=== PATIENT | female | born 1945 | race Asian ===

== ENCOUNTER 2017-04-07 21:35 | Emergency (ER) | payer OTHER ==
[2017-04-07 21:54] VITALS: PULSE 84; RESP 16; TEMP 98.4
[2017-04-07] MEDS ORDERED: TDAP ADULT 0.5 ML INJ (BOOSTRIX) IM ONE (21:54)
--- NOTE | 2017-04-07 22:22 | EDPHY ---
H & P Stated Complaint: laceration left side of head-hit on circulating fan Time Seen by Provider: 04/07/17 21:52 HPI/ROS: CHIEF COMPLAINT: Scalp laceration HISTORY OF PRESENT ILLNESS: This is a healthy 72-year-old female who presents with scalp laceration. She was struck on the left side of her head by a slow- moving ceiling fan when she reached for the cord (she was standing on the bed at the time). She did not fall or lose consciousness. She denies other injuries. She does not take anticoagulation. She does not have headache. Bleeding has been controlled. REVIEW OF SYSTEMS: A ten point review of systems was performed and is negative with the exception of the items mentioned in the HPI. Past medical history: Denies Social history: She lives in [place]. She is here visiting her son. No tobacco or alcohol use. General Appearance: Alert. Vital signs reviewed. Initial blood pressure 180/ 84. Head: There is a 1-1/4 cm laceration on the left frontal scalp, behind the hairline. Linear laceration, galea intact. No palpable skull deformity. Eyes: Pupils equal and round, no conjunctival injection, no discharge. Anicteric. ENT, Mouth: Mucous membranes are moist, no oropharyngeal erythema or edema. Neck: Nontender to palpation over the cervical spine in the midline. Respiratory: Lungs are clear to auscultation; no wheezes, rales, or rhonchi. Cardiovascular: Regular rate and rhythm; no murmur, rub, or gallop. Skin: Warm and dry, no rashes on exposed skin, normal color. Back: Nontender to palpation over the thoracolumbar spine. No CVAT.g. Neurological: Alert and oriented. Moving all four extremities easily and equally. KENIA. EOMI. Facial expression symmetric. Psychiatric: Normal affect. - Personal History Current Tetanus Diphtheria and Acellular Pertussis (TDAP): No - Medical/Surgical History Hx Asthma: No Hx Chronic Respiratory Disease: No Hx Diabetes: No Hx Cardiac Disease: No Hx Renal Disease: No Hx Cirrhosis: No Hx Alcoholism: No Hx HIV/AIDS: No Hx Splenectomy or Spleen Trauma: No Other PMH: asthma as a child - Social History Smoking Status: Never smoked Constitutional: Initial Vital Signs Temperature (C) 36.9 C 04/07/17 21:51 Heart Rate 84 04/07/17 21:51 Respiratory Rate 16 04/07/17 21:51 Blood Pressure 180/84 H 04/07/17 21:51 O2 Sat (%) 94 04/07/17 21:51 O2 Delivery Mode Room Air Allergies/Adverse Reactions: No Known Allergies Allergy (Unverified 04/07/17 21:51) Home Medications: Medication Instructions Recorded NK [No Known Home Meds] 04/07/17 Medical Decision Making Procedures: Procedure: Laceration repair. Verbal consent was obtained from the patient. The one and 1/4 cm laceration on the left frontal scalp was anesthetized in the usual fashion. The wound was irrigated explored to its base with a gloved finger. There were no deep structures involved. Galea was intact. The wound was repaired with 8 surgical eris. The wound repair was single layer, simple. The procedure was performed by myself. ED Course/Re-evaluation: I considered scalp laceration, skull fracture, concussion, and intracranial hemorrhage. Tetanus was updated. Departure - Departure Disposition: Home, Routine, Self-Care Clinical Impression: Scalp laceration Qualifiers: Encounter type: initial encounter Qualified Code(s): S01.01XA - Laceration without foreign body of scalp, initial encounter Condition: Good Instructions: Laceration (ED) Additional Instructions: Eris need to be removed in 5 to 7 days. They are 8 eris. If you ask your primary care doctor to take them out you should take a staple remover and these instructions with you. Keep them dry for 24 hours. After that you can gently wash your hair and pat dry the wound. Referrals: NONE *PRIMARY CARE P,. [Primary Care Provider] - As per Instructions
[2017-04-07 22:57] VITALS: BP 180/91; O2SAT 96
== END 2017-04-07 22:57 | disposition home or self-care (01) ==
LOC: CED 21:35
PROC: 0HQ0XZZ Repair Scalp Skin, External Approach (ICD-10-PCS; principal; 2017-04-07)
DX: S01.01XA Laceration without foreign body of scalp, initial encounter (principal); Z23 Encounter for immunization; W22.8XXA Striking against or struck by other objects, initial encounter